=== PATIENT | female | born 1985 ===

== ENCOUNTER 2021-09-16 20:23 | Emergency (ER) | payer OTHER ==
--- OUTSIDE RECORDS SUMMARY | 2021-09-16 20:27 | XMS REPORT | Continuity of Care Document ---
:1985 Author Organization [facility] t Address [address] [place] [address] Care Team Providers Name Role Phone Gaby JUSTYN Primary Care Physician Shayla RN, T Attending Clinician Unavailable ANGELI Attending Clinician Unavailable Only, Db Test Attending Clinician Unavailable Angeli PA-C Attending Clinician Doctor Unassigned, Name Attending Clinician Unavailable Pob, Lab Main Attending Clinician Unavailable Payers Payer Name Policy Type Policy Number Effective Date Expiration Date S ource Problems Condition Condition Condition Status Onset Resolution Last Treating Co mments Source Name Details Category Date Date Treatment Clinician Date No known No known Disease Unive rs active active ity of problems problems [facility] Allergies, Adverse Reactions, Alerts Allergy Allergy Status Severity Reaction(s) Onset Inactive Treating Comm ents Source Name Type Date Date Clinician NO KNOWN Drug Active Univers ALLERGIE Class ity of [facility] [place] [facility] [place] Social History Social Habit Start Date Stop Date Quantity Comments Source History SDOH University o f Alcohol Frequency [place] [facility] History SDOH University o f Alcohol Std [place] [facility] Drinks Branch History SDOH University o f Alcohol Binge [place] [facility] Exposure to Yes University of SARS-CoV-2 [place] [facility] (event) [facility] Alcohol intake 2019-07-06 2019-07-06 Current drinker Unive rsity of 00:00:00 00:00:00 of alcohol [place] [facility] (finding) Branch Alcohol Comment 2019-07-04 2019-07-04 social drinker Unive rsity of 00:00:00 00:00:[address] [facility] Branch Tobacco use and 2019-07-04 2019-07-04 Never used Universit y of exposure 00:00:00 00:00:00 [facility] Sex [birth year] Universit y of 00:00:00 00:00:00 [facility] Smoking Status Start Date Stop Date Source Unknown if ever smoked Julianait y of [facility] Never smoker [facility] Medications Ordered Filled Start Stop Current Ordering Indication Dosage Frequency Signature Comments Components Source Medication Medication Date Date Medication? Clinician (SIG) Name Name clindamycin 2020-0 Yes 100mg Insert 1 U nivers 100 mg 2-26 Suppositor ity of vaginal 00:00: y into [place] suppository 00 vagina at [facility] bedtime. Branch clindamycin 2020-0 Yes 100mg Insert 1 U nivers 100 mg 2-26 Suppositor ity of vaginal 00:00: y into [place] suppository 00 vagina at [facility] bedtime. Branch clindamycin 2020-0 Yes 100mg Insert 1 U nivers 100 mg 2-26 Suppositor ity of vaginal 00:00: y into [place] suppository 00 vagina at [facility] bedtime. Branch clindamycin 2020-0 Yes 100mg Insert 1 U nivers 100 mg 2-26 Suppositor ity of vaginal 00:00: y into [place] suppository 00 vagina at [facility] bedtime. Branch metroNIDAZO 2020-0 Yes [id number] 500mg Take 1 Univers LE 500 mg 2-18 tablet by ity o f tablet 00:00: mouth [place] 00 every 12 Medical (twelve) Branch hours. metroNIDAZO 2020-0 Yes [id number] 500mg Take 1 Univers LE 500 mg 2-18 tablet by ity o f tablet 00:00: mouth [place] 00 every 12 Medical (twelve) Branch hours. metroNIDAZO 2020-0 Yes [id number] 500mg Take 1 Univers LE 500 mg 2-18 tablet by ity o f tablet 00:00: mouth [place] 00 every 12 Medical (twelve) Branch hours. metroNIDAZO 2020-0 Yes [id number] 500mg Take 1 Univers LE 500 mg 2-18 tablet by ity o f tablet 00:00: mouth [place] 00 every 12 Medical (twelve) Branch hours. metroNIDAZO 2020-0 Yes [id number] 500mg Take 1 Univers LE 500 mg 2-18 tablet by ity o f tablet 00:00: mouth [place] 00 every 12 Medical (twelve) Branch hours. metroNIDAZO 2020-0 Yes [id number] 500mg Take 1 Univers LE 500 mg 2-18 tablet by ity o f tablet 00:00: mouth [place] [id number] every 12 Medical (twelve) Branch hours. metroNIDAZO 2020-0 Yes [id number] 500mg Take 1 Univers LE 500 mg 2-18 tablet by ity o f tablet 00:00: mouth [place] 00 every 12 Medical (twelve) Branch hours. butalbital- 2020-0 2020- No 2{tbl} Take 2 U nivers acetaminoph 1-30 03-01 tablets by i ty of en-caff 00:00: 05:59 mouth. [place] 50-325-40 00 :00 Medical mg tablet Branch sumatriptan 2020-0 2020- No 100mg Take 100 Univers 100 mg 1-30 03-01 mg by ity of tablet 00:00: 05:59 mouth. [place] 00 :00 Medical Branch butalbital- 2020-0 2020- No 2{tbl} Take 2 U nivers acetaminoph 1-30 03-01 tablets by i ty of en-caff 00:00: 05:59 mouth. [place] 50-325-40 00 :00 Medical mg tablet Branch sumatriptan 2020-0 2020- No 100mg Take 100 Univers 100 mg 1-30 03-01 mg by ity of tablet 00:00: 05:59 mouth. [place] 00 :00 Medical Branch butalbital- 2020-0 2020- No 2{tbl} Take 2 U nivers acetaminoph 1-30 03-01 tablets by i ty of en-caff 00:00: 05:59 mouth. [place] 50-325-40 00 :00 Medical mg tablet Branch sumatriptan 2020-0 2020- No 100mg Take 100 Univers 100 mg 1-30 03-01 mg by ity of tablet 00:00: 05:59 mouth. [place] 00 :00 Medical Branch butalbital- 2020-0 2020- No 2{tbl} Take 2 U nivers acetaminoph 1-30 03-01 tablets by i ty of en-caff 00:00: 05:59 mouth. [place] 50-325-40 00 :00 Medical mg tablet Branch sumatriptan 2020-0 2020- No 100mg Take 100 Univers 100 mg 1-30 03-01 mg by ity of tablet 00:00: 05:59 mouth. [place] 00 :00 Medical Branch butalbital- 2020-0 2020- No 2{tbl} Take 2 U nivers acetaminoph 1-30 03-01 tablets by i ty of en-caff 00:00: 05:59 mouth. [place] 50-325-40 00 :00 Medical mg tablet Branch sumatriptan 2020-0 2020- No 100mg Take 100 Univers 100 mg 1-30 03-01 mg by ity of tablet 00:00: 05:59 mouth. [place] 00 :00 Medical Branch butalbital- 2020-0 2020- No 2{tbl} Take 2 U nivers acetaminoph 1-30 03-01 tablets by i ty of en-caff 00:00: 05:59 mouth. [place] 50-325-40 00 :00 Medical mg tablet Branch sumatriptan 2020-0 2020- No 100mg Take 100 Univers 100 mg 1-30 03-01 mg by ity of tablet 00:00: 05:59 mouth. [place] 00 :00 Medical Branch butalbital- 2020-0 2020- No 2{tbl} Take 2 U nivers acetaminoph 1-30 03-01 tablets by i ty of en-caff 00:00: 05:59 mouth. [place] 50-325-40 00 :00 Medical mg tablet Branch sumatriptan 2020-0 2020- No 100mg Take 100 Univers 100 mg 1-30 03-01 mg by ity of tablet 00:00: 05:59 mouth. [place] 00 :00 Medical Branch butalbital- 2020-0 2020- No 2{tbl} Take 2 U nivers acetaminoph 1-30 03-01 tablets by i ty of en-caff 00:00: 05:59 mouth. [place] 50-325-40 00 :00 Medical mg tablet Branch sumatriptan 2020-0 2020- No 100mg Take 100 Univers 100 mg 1-30 03-01 mg by ity of tablet 00:00: 05:59 mouth. [place] 00 :00 Medical Branch butalbital- 2020-0 2020- No 2{tbl} Take 2 U nivers acetaminoph 1-30 03-01 tablets by i ty of en-caff 00:00: 05:59 mouth. [place] 50-325-40 00 :00 Medical mg tablet Branch sumatriptan 2020-0 2020- No 100mg Take 100 Univers 100 mg 06-23- mg by ity of tablet 00:00: 05:59 mouth. [place] 00 :00 Medical Branch butalbital- 2019- No 2{tbl} Take 2 U nivers acetaminoph 06-23 tablets by i ty of en-caff 00:00: 05:59 mouth. [place] 50-325-40 00 :00 Medical mg tablet Branch sumatriptan 2019- No 100mg Take 100 Univers 100 mg 06-23 mg by ity of tablet 00:00: 05:59 mouth. [place] 00 :00 Medical Branch No known No Univers medications ity of [facility] Vital Signs Vital Name Observation Time Observation Value Comments Source Systolic blood 2019-07-06 21:39:00 125 mm[Hg] Univer sity of pressure [facility] Diastolic blood 2019-07-06 21:39:00 78 mm[Hg] Unive rsity of [facility] Heart rate 2019-07-06 21:39:00 85 /min Universi ty [facility] Body temperature 2019-07-06 21:39:[address] [facility] Respiratory rate 2019-07-06 21:39:00 18 /min Univ ersity [facility] Body height 2019-07-06 21:39:00 180.3 cm Universi ty of [facility] Body weight 2019-07-06 21:39:[address] [facility] BMI 2019-07-06 21:39:00 27.25 kg/m2 Universi ty [facility] Systolic blood 2019-07-04 21:22:00 125 mm[Hg] Univer sity of [facility] Diastolic blood 2019-07-04 21:22:00 78 mm[Hg] Unive rsity of [facility] Heart rate 2019-07-04 21:21:00 92 /min Universi ty [facility] Body temperature 2019-07-04 21:21:[address] [facility] Respiratory rate 2019-07-04 21:21:00 18 /min Univ ersity [facility] Body height 2019-07-04 21:21:00 180.3 cm Universi ty of [facility] Body weight 2019-07-04 21:21:00 86.637 kg [facility] BMI 2019-07-04 21:21:00 26.64 kg/m2 [facility] Procedures Procedure Date / Time Performed Performing Clinician Sour e ASSIGNMENT OF BENEFITS 2021-02-24 22:12:48 Doctor Unassigned, No [facility] ASSIGNMENT OF BENEFITS 2019-07-06 22:19:43 Doctor Unassigned, No [facility] Encounters Start End Encounter Admission Attending Care Care Encounter Source Date/Time Date/Time Type Type Clinicians Facility Department ID 2021-02-25 2021-02-25 Letter ANNMARIE Mcguire [id number] Univers 00:00:00 00:00:00 (Out) Lilly AGUILAR [id number] [facility] [id number] [place] as [phone] [address] 2021-02-24 2021-02-[address] [facility] [id number] Univers 18:00:00 18:00:[id number] [facility] 2021-02-24 2021-02-24 [facility] [id number] Univers 18:00:00 18:00:00 LUCIA [facility] 2021-02-24 2021-02-24 Laboratory Only, Ang Db Test [facility] 1.2.8 40.114 [id number] Univers 17:13:12 17:33:12 Only Lucia Crowley [facility] [id number] ity of [place] [id number] [place] as Porfirio?Blea [phone] [address] Medical Office Building 2021-02-24 2021-02-24 Orders Doctor ANGUIANO [id number] Univers 00:00:00 00:00:00 Only JEFF Petty [id number] [facility] [id number] [place] [phone] [address] 2019-07-20 2019-07-20 Telephone Angeli [facility] 1.2.840.114 [id number] Univers 00:00:00 00:00:00 Lucia Nelson [id number] i [id number] [phone] [place]ical [place] [address] [facility] 2019-07-13 2019-07-13 Telephone Angeli [facility] [id number] Univers 00:00:00 00:00:00 Lucia Nelson [id number] i ty [id number] [phone] [place] dical nal [address] [facility] 2019-07-13 2019-07-13 Case Angeli [facility] [id number] Univers 00:00:00 00:00:00 Management Lucia Nelson [id number] ity [id number] [phone] N[place] dical nal [address] [place] [address] 2019-07-12 2019-07-12 Telephone Angeli DCRAF 1.2.840.114 [id number] Univers 00:00:00 00:00:00 Lucia Nelson [id number] i ty [id number] [phone] [place] dical nal [address] [facility] 2019-07-08 2019-07-08 Patient Doctor [place] 1.2.840.114 [id number] Univers 00:00:00 00:00:00 Secure Msg UnassignedLeslie [id number] ity of [id number] [phone] [place] dical [place]al [address] [facility] 2019-07-06 2019-07-06 Manager Statistical Programming Tao, Donte Lab Main [place] 1.2.8 40.114 [id number] Univers 16:18:54 16:33:54 Visit Lucia Crowley [id number] ity [id number] [phone] [place] dical nal [address] [facility] 2019-07-06 2019-07-06 Office Angeli DCRAF [id number] Univers 15:20:10 16:05:55 Visit Lucia Nelson [id number] i ty [id number] [phone] N[place] dical [facility] [address] [facility] 2019-07-06 2019-07-06 Orders Doctor ANNMARIE 1.2.840.114 [id number] Univers 00:00:00 00:00:00 Only Unassigned, JEFF [id number] [place] [facility] [id number] [place] [phone] [address] 2019-07-04 2019-07-04 Office Angeli [facility] [id number] [facility] 15:11:44 15:48:19 Visit Lucia Nelson [id number] i ty of [id number] [phone] Nc dic[address] 2019-06-27 2019-06-27 Telephone Angeli DCRAF 1.2.840.114 [id number] Univers 00:00:00 00:00:00 Lucia Nelson [id number] i ty [id number] [phone] [address] Results This patient has no known results.
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
--- NOTE | 2021-09-16 22:49 | RAD REPORT ---
EXAM DESCRIPTION: RAD - Chest Pa And Lat (2 Views) - 09/16/2021 10:08 pm CLINICAL HISTORY: PAIN COMPARISON: No comparisons FINDINGS: Lines: None. Lungs: No evidence of edema or pneumonia. Pleural: No significant pleural effusions or pneumothorax. Cardiac: The heart size is within normal limits. Bones: No acute fractures. Thoracolumbar curvature. Other: IMPRESSION: No acute cardiopulmonary disease.
[2021-09-17 01:25] VITALS: TEMP 98.2
[2021-09-17 01:27] VITALS: BP 114/74; O2SAT 99
--- NOTE | 2021-09-18 13:00 | EKG ---
Test Date: 2021-09-16 Test Time: 21:34:15 [employer] Impaired: ELIJAH MEASUREMENT RESULTS: Intervals: Rate: 62 MS: 140 QRSD: 98 QT: 438 QTc: 444 Tatums: P: 51 MS: 140 QRS: 15 T: 8 INTERPRETIVE STATEMENTS: Normal sinus rhythm Normal ECG No previous ECG available for comparison Electronically Signed On 09-18-21 12:57:44 CDT by Sukh Muñoz
== END 2021-09-16 22:43 | disposition home or self-care (01) ==
LOC: ER 20:23
DX: S13.4XXA Sprain of ligaments of cervical spine, initial encounter (principal); R07.9 Chest pain, unspecified; V43.52XA Car driver injured in collision with other type car in traffic accident, initial encounter; Y93.89 Activity, other specified; Y92.410 Unspecified street and highway as the place of occurrence of the external cause; F43.10 Post-traumatic stress disorder, unspecified; F90.9 Attention-deficit hyperactivity disorder, unspecified type; E28.2 Polycystic ovarian syndrome
CPT/HCPCS: 71046; 72125; 93005; 99283